=== PATIENT | female | born 1985 | race Caucasian/White ===

== ENCOUNTER 2017-12-24 02:15 | Inpatient (IN) ==
[2017-12-24] MEDS ORDERED: CARBOPROST 250 MCG/ML INJECTION IM PRN (02:30)
[2017-12-24] MEDS ORDERED: CALCIUM CARBONATE Chewable 500mg TABLET PO PRN ×2 (02:30→10:09)
[2017-12-24] MEDS ORDERED: D5LR 1,000 ML IV SCH (02:30)
[2017-12-24] MEDS ORDERED: ACETAMINOPHEN 500 MG TABLET PO PRN ×2 (02:30→10:09)
[2017-12-24] MEDS ORDERED: METHYLERGONOVINE 0.2 MG/ML INJECTION IM PRN (02:30)
[2017-12-24] MEDS ORDERED: MAG-AL + SIM ORAL LIQUID 30ml PO PRN ×2 (02:30→10:09)
[2017-12-24 02:35] VITALS: BMI 32.3
[2017-12-24] MEDS: LR 1,000 ML IV PRN ×2 (02:43→04:57)
[2017-12-24] MEDS ORDERED: NS IV SCH ×2 (02:45→03:00)
[2017-12-24] MEDS ORDERED: VANCOMYCIN IV SCH ×2 (02:45→03:00)
[2017-12-24] MEDS ORDERED: DiphenhydrAMINE 50 MG/ML INJECTION IVP PRN (05:00)
[2017-12-24] MEDS ORDERED: ONDANSETRON 4 MG/2 ML INJECTION IVP PRN (05:00)
[2017-12-24] MEDS ORDERED: ROPIVACAINE 1% 10MG/ML INJ 200 MG, SUFentanil 50 MCG in NS 100 ML EPI PRN (05:00)
[2017-12-24] MEDS ORDERED: NALOXONE 0.4 MG/ML INJECTION IVP PRN (05:00)
--- NOTE | 2017-12-24 05:00 | Anesthesia Preoperative Report ---
Anesthesia Epidural/Spinal Rec - Date and Time Date: 12/24/17 Procedure: Labor Epidural Plan: Epidural - Vital Signs Vital Signs: Temperature 98.0 F 12/24/17 02:57 Pulse Rate 61 12/24/17 02:57 Respiratory Rate 16 12/24/17 02:57 Blood Pressure 136/85 12/24/17 02:57 Pulse Oximetry 99 12/24/17 02:57 /Para: P:1 - Medictaions & Allergies Inpatient Medications: Current Medications Acetaminophen (Tylenol) 500 - 1,000 mg PO Q4H PRN PRN Reason: Pain Al Hydroxide/Mg Hydroxide (Maalox Plus) 30 ml PO Q3H PRN PRN Reason: Indigestion Calcium Carbonate (Tums) 500 - 1,000 mg PO Q2H PRN PRN Reason: Indigestion Carboprost Tromethamine (Hemabate) 250 mcg IM O PRN PRN Reason: .Downtime Dextrose/Lactated Ringer's (Dextrose 5%-Lactated Ringers) 1,000 mls @ 125 mls/ hr IV .Q8H RAKESH Lactated Ringer's (Lactated Ringers) 1,000 mls @ 999 mls/hr IV .Q1H1M PRN Last Admin: 12/24/17 04:57 Dose: 999 mls/hr Vancomycin HCl 1,000 mg/ (Sodium Chloride) 250 mls @ 250 mls/hr IV Q12H RAKESH Methylergonovine Maleate (Methergine) 0.2 mg IM O PRN Misoprostol (Cytotec) 800 mcg GA ONCE PRN Allergies/Adverse Reactions: Allergies Allergy/AdvReac Type Severity Reaction Status Date / Time Penicillins Allergy Unknown Verified 12/24/17 02:58 - Home Medications Home Medications: Home Medications Medication Instructions Recorded Confirmed Type Garlic #0 02/13/15 History Vit No.130/Iron/Folic 1 tab PO DAILY #0 tab 02/13/15 History [ Tablet] Iron 11/30/17 History Probiotic 11/30/17 History - Medical History Respiratory: DENIES: Asthma, Bronchitis, Chronic Obstructive Pulmonary Disease (COPD), Dyspnea, Orthopnea, Pulmonary Embolism, Pneumonia, Upper Respiratory Infection, Pulmonary Edema, Sleep Apnea, Tuberculosis, Other Cardiovascular: DENIES: Abnormal EKG, Angina, Arrhythmia, Congestive Heart Failure, Coronary Artery Disease, Heart Murmur, Hypertension, Hypotension, High Cholesterol, Myocardial Infarction, Rheumatic Fever, Valvular Heart Disease, Other Gastrointestional: Reports: Gastroesophageal Reflux Disease (with ) Neuro/Musculoskeletal: Reports: Back Problems (bulging disc L4-5) Renal/Endocrine: DENIES: Diabetes Mellitus Type 1, Diabetes Mellitus Type 2, Renal Failure, Dialysis, Thyroid Disease, Weight Loss, Weight Gain, Other Other History: Reports: Now - Surgical History HEENT Surgeries: Reports: Tonsillectomy (at age 19) Reproductive Surgery/Treatment: DENIES: Section Anesthesia Reactions: None Hx Family Anesthesia Reaction: No History of Motion Sickness: No - Social History Smoking Status: Never smoker - Pertinent Findings Lab Data: CBC and BMP 12/24/17 02:41 - Physical Exam Respiratory Exam: lungs clear, bilateral breath sounds equal Cardiovascular Exam: regular rate and rhythm, no murmur - Airway Assessment Mallampati Score: II TMD: 3 Fingerbreadths Neck Extension: good Overall Assessment: may be difficult intubation - ASA ASA Score: 2 - Discussion Discussion: Discussed risks/options/alternatives of anesthesia and questions answered. Patient consents. Nursing pain assessment noted. Anesthesia Discussion: spouse Attestation Statement: Prior to the delivery of any anesthetic medication, I examined the patient, developed the plan, obtained the patient's consent and discussed the risk and benefits of the procedure with the patient/guardian.
[2017-12-24] MEDS ORDERED: MEASLES-MUMPS-RUBELLA VACCINE 0.5ml INJECTION SQ ONE (10:09)
[2017-12-24] MEDS ORDERED: DiphenhydrAMINE 25 MG CAPSULE PO PRN (10:09)
[2017-12-24] MEDS ORDERED: HYDROCORTISONE 2.5% CREAM 30gm RECTALLY PRN (10:09)
[2017-12-24] MEDS: HYDROCODONE/APAP 5mg/325mg TABLET PO PRN ×4 (10:11→23:09)
[2017-12-24] MEDS: IBUPROFEN 800 MG TABLET PO PRN ×2 (10:11→18:39)
--- NOTE | 2017-12-24 11:18 | Labor and Delivery Note ---
DATE OF DELIVERY: 12/24/2017 DIAGNOSES 1. 32-year-old white female, G2, P1 at 40.2 weeks gestational age. 2. Spontaneous rupture of membranes. 3. GBS prophylaxis. 4. Epidural anesthesia. 5. Pitocin augmentation. 6. OP rotating to OA. 7. Spontaneous vaginal delivery. 8. Male , 8/9 Apgars, 4010 g (Xavi Justin). 9. Bilateral periurethral lacerations with a left side repair. 10. Nuchal cord x 1. DESCRIPTION This is a patient of Dr. Perry who is postdates and scheduled for an induction next week. She came in last night complaining of spontaneous rupture of membranes but it was negative and she was not jesse so she was sent home. Later around 1:30 this morning she had a gush of fluid and came in and this time the test was positive for a rupture and she was admitted. She even though she is jesse she had no cervical change for the first multiple hours. The patient desired an epidural block so that was done and then Pitocin augmentation was started and reached a maximum of 14 milliunits/minute. Then it was decreased and later turned off for heart tone issues. Heart tones baselined lower than usual but overall did well. With the Pitocin augmentation she went to 9 cm dilated. I allowed more time and then she made it to complete dilation but was in the ROP position. With pushing she spontaneously rotated to OA and we had a spontaneous vaginal delivery from the OA presentation. Infant was bulb suctioned after delivery of the head and then again after delivery of the body. There was a nuchal cord x 1 that was reduced. Cord was allowed to drain for over two minutes and then when it was collapsed it was doubly clamped and cut by the infant's father. Infant was initially placed on the mother's abdomen. Apgars were 8/9/9. Placenta delivered spontaneously and was intact. Perineum showed bilateral periurethrals but the left one needed repair and I did that with 3-0 chromic in a running, nonlocking fashion. Patient received GBS prophylaxis of vancomycin in one dose. Rubella was equivocal so will revaccinate. Maternal blood type is A+. MTDD
[2017-12-24] MEDS: OXYTOCIN DRIP 30 UNIT/500 ML ML IV SCH ×2 (12:21→23:14)
--- NOTE | 2017-12-24 13:03 | Anesthesia Postoperative Note ---
- Date and Time Date: 12/24/17 Time: 13:03 - Status Patient Participated in Evaluation: Patient Participated in Person Vital Signs: Temperature 98.0 F 12/24/17 02:57 Pulse Rate 61 12/24/17 02:57 Respiratory Rate 16 12/24/17 02:57 Blood Pressure 136/85 12/24/17 02:57 Pulse Oximetry 99 12/24/17 08:08 Respiratory Function: Airway Patent Cardiovascular Function: Regular Pulse EKG: Sinus Rhythm Mental Status: Alert and Oriented Pain Intensity: 3 Hydration: Taking PO Fluids Complications During Recover: None Apparent - Follow-Up Instructions Instructions: Per Surgeon
[2017-12-24 15:46] VITALS: RESP 16
[2017-12-25] MEDS: IBUPROFEN 800 MG TABLET PO PRN ×3 (04:17→21:09)
[2017-12-25] MEDS: HYDROCODONE/APAP 5mg/325mg TABLET PO PRN ×4 (04:17→21:08)
[2017-12-25] MEDS ORDERED: DOCUSATE CALCIUM 240 MG CAPSULE PO SCH (09:00)
--- NOTE | 2017-12-25 12:49 | Progress Note ---
OB PP Progress Note Free Text - Date Date: 12/25/17 - Progress Note Progress Note: PPD #1 Doing well vss af cont current care path q&a-krb
[2017-12-25 22:41] VITALS: PULSE 60; TEMP 97.7
--- NOTE | 2017-12-26 05:54 | Progress Note ---
OB PP Progress Note Free Text - Date Date: 12/26/17 - Progress Note Progress Note: vss af doing ok plan dc today rx written instructions reviewed q&a-krb
[2017-12-26] MEDS: IBUPROFEN 800 MG TABLET PO PRN (06:11)
[2017-12-26 06:16] VITALS: BP 121/69; O2SAT 95
== END 2017-12-26 11:12 | disposition home or self-care (01) | DRG 775 ==
LOC: OBOBS 02:18 → MC 02:19
PROVIDERS: ADMIT Obstetrics & Gynecology; ATTEND Obstetrics & Gynecology